=== PATIENT | female | born 1980 | race Caucasian/White ===

== ENCOUNTER 2023-05-18 08:56 | Emergency (ER) | payer OTHER, SELFPAY ==
[2023-05-18 08:57] VITALS: BP 135/84
[2023-05-18 11:18] VITALS: BP 136/73
[2023-05-18] MEDS: NSS 1000 IV (11:18)
[2023-05-18] MEDS: TORADOL 15 MG IV (11:19)
[2023-05-18 11:53] VITALS: BP 131/79
[2023-05-18 11:56] LABS: Urine Albumin Negative (Neg - Trace); Urine Bilirubin Negative (Negative); Urine Character Clear (Clear); Urine Color Yellow; Urine Glucose Negative (Negative); Urine Ketone Negative (Negative); Urine Leukocyte Negative (Negative); Urine Nitrite Negative (Negative); Urine Occult Blood 3+ (Negative); Urine Specific Gravity 1.015 (<1.030); Urine Urobilinogen Negative (Neg - 1+)
[2023-05-18 11:57] LABS: % Basophils 0.4 % (0-2); % Eosinophils 1.2 % (0-6); % Immature Granulocytes 0.4 % (0-0.5); % Lymphocytes 10.2 % (20.5-51.1); % Monocytes 2.6 % (1.7-9.3); % Neutrophils 85.2 % (42.2-75.2); Absolute Basophils 0.1 10^3/uL (0-0.2); Absolute Eosinophils 0.1 10^3/uL (0-0.7); Absolute Lymphocytes 1.1 10^3/uL (1.2-3.4); Absolute Monocytes 0.3 10^3/uL (0.1-0.6); Absolute Neutrophils 9.5 10^3/uL (1.4-6.5); Hemoglobin 13.9 g/dL (12.0-16.0); Mean Corp Hgb Conc. 36.6 g/dL (33.0-37.0); Mean Corpuscular Hgb 30.8 pg (27.0-31.0); Mean Corpuscular Volume 84.3 fL (81.0-99.0); Mean Platelet Volume 11.8 fL (7.4-10.4); Nucleated Red Blood Cells % 0 %; Platelet Count 143 10^3/uL (130-400); Red Blood Cell Count 4.51 10^6/uL (4.20-5.40); Red Cell Dist. Width 12.7 % (11.5-14.5); White Blood Cell Count 11.1 10^3/uL (4.8-10.8)
[2023-05-18 12:00] VITALS: BP 132/74
[2023-05-18 12:01] LABS: Urine Bacteria Few (Negative); Urine White Cell 0-2 /HPF (0-5)
[2023-05-18 12:08] LABS: HCG, Serum Qualitative Screen Negative
[2023-05-18 12:11] LABS: ALT (SGPT) 13 U/L (0-35); AST (SGOT) 22 U/L (14-36); Albumin 4.2 g/dl (3.5-5.0); Alkaline Phosphatase 87 U/L (38-126); Blood Urea Nitrogen 12 mg/dl (7-17); Calcium 9.6 mg/dl (8.4-10.2); Carbon Dioxide 24 mmol/L (22-30); Chloride 103 mmol/L (98-107); Glucose 115 mg/dl (70-99); Potassium 4.1 mmol/L (3.5-5.1); Sodium 138 mmol/L (135-145); Total Bilirubin 0.7 mg/dl (0.2-1.3); Total Protein 7.5 g/dl (6.3-8.2); eGFR > 60.00
--- NOTE | 2023-05-18 12:15 | ED.GENMED ---
History of Present Illness
General
Chief Complaint: Flank Pain
Source: patient
Exam Limitations: none
Time Seen by Provider: 05/18/23 11:01
Nursing documentation reviewed up to this point in time: agreed with
Travel History
Have you had any contact with someone who has COVID-19?: No
Do you have any symptoms of coronavirus? Fever > 100 degrees, chills, cough, shortness of breath, sore throat, loss of taste or smell, muscle aches, or headache?: No
History of Present Illness
History of Present Illness:
42-year-old female presents emergency department complaining of right flank pain, cloudy urine for the past 6 days.
Past History
Past History
ED Past Medical History: None
ED Past Surgical History: and Other (Laparoscopy with IVF, wisdom teeth extraction)
Social History
Tobacco: Non-smoker
Alcohol: None
Drug: None
Personal:
Living: with family
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
Family History
Family History: Other (Noncontributory)
Review of Systems
Review of Systems
Allergies reviewed?: Yes
All Other Systems: Not applicable
Constitutional: Reports no symptoms
EENT: Reports no symptoms
Respiratory: Reports no symptoms
Cardiac: Reports no symptoms
ABD/GI: Reports no symptoms
: Reports flank pain
Musculoskeletal: Reports no symptoms
Skin: Reports no symptoms
Neurological: Reports no symptoms
Endocrine: Reports no symptoms
Hematologic/Lymphatic: Reports no symptoms
Psychiatric: Reports no symptoms
Phy Exam
Physical Exam
Physical Exam:
Physical Exam
General: no apparent distress, not acutely ill
Neck: supple. no meningeal signs. normal posterior pharynx
Heart: s1/s2 regular rate and rhythm, no murmur. equal radial
pulses.
HEENT: Pupils equal round reactive to light, EOMI
Lungs: no acute respiratory distress. clear bilaterally
Abdomen: normal bowel sounds. not tender. no CVAT
Neuro: alert and oriented. no focal neurological deficits cranial nerves II through XII intact
Skin: no rash
Psychiatric: well kept. interactive and cooperative
Extremities: no edema. no calf tenderness. negative homans. good distal pulses
Course
Orders/Labs/Results
Orders:
Orders
05/18/23 09:02
Test Result ONCE
05/18/23 11:10
CT Abd/pel Without Iv Or Oral Urgent
Comment:
Reason For Exam: right flank pain
IV Insert/Care/Rem.- Treatment PRN
0.9% Sodium Chloride 1000 ml [Nss] 1,000 ml IV BOLUS
Ketorolac [Toradol] 15 mg IV NOW STA
05/18/23 11:14
CBC/With Diff [Complete Blood Count/With Diff] Urgent
Comprehensive Metabolic Panel Urgent
HCG, Serum Qualitative Screen Urgent
Lipase Urgent
Comment: ADD-ON
Urinalysis Reflex To Culture Urgent
Date Specimen was Collected: 05/18/23
Time Specimen was Collected: 09:03
Urine Microscopic Reflex Cult Urgent
05/18/23 14:19
Add On- LAB Urgent
Tests Added?: lipase
Abnormal Lab Results
05/18/23
11:14
WBC 11.1 H 10^3/uL
(4.8-10.8)
MPV 11.8 H fL
(7.4-10.4)
Absolute Neuts (auto) 9.5 H 10^3/uL
(1.4-6.5)
Absolute Lymphs (auto) 1.1 L 10^3/uL
(1.2-3.4)
Neutrophils % 85.2 H %
(42.2-75.2)
Lymphocytes % 10.2 L %
(20.5-51.1)
Glucose 115 H mg/dl
(70-99)
Ur Occult Blood Reflex 3+ A
(Negative)
Urine RBC 3-6 A /HPF
(0-2)
Urine Bacteria (Reflex) Few A
(Negative)
05/18/23 11:14
05/18/23 11:14
Vital Signs
Initial and Last Documented VS:
Initial Vital Signs
Temp Pulse Resp BP Pulse Ox
98.3 F 81 16 135/84 97
05/18/23 08:57 05/18/23 08:57 05/18/23 08:57 05/18/23 08:57 05/18/23 08:57
Last Documented Vital Signs
Temp Pulse Resp BP Pulse Ox
98.3 F 69 20 124/78 99
05/18/23 08:57 05/18/23 13:30 05/18/23 13:30 05/18/23 13:24 05/18/23 13:30
MDM/Problems Addressed
Differential Diagnosis Includes:
Kidney stone, pyelonephritis
MDM/Problems Addressed:
Right flank pain, no signs of kidney stone, unusual fat replacement of neck and body of pancreas and soft tissue density in head and tail of pancreas. Patient will have outpatient MRI ordered by primary care. Return precautions given.
Chronic conditions affecting care: Previous abdomnial surgery (C-sections)
Acute Exacerbation and/or Progression of Chronic Illness: Previous abdomnial surgery (C-sections)
*Radiology
Radiology exam reviewed: radiology read reviewed (CT abdomen pelvis no acute findings, abnormal fat replacement of head and body of pancreas, possible soft tissue mass in tail of pancreas)
*Pulse Oximetry
Patient hypoxic: no
*EKG
Interpreted by ED Provider?: NA
*Manager Exchange Interpretation
Rate: Manager Exchange- N/A
*Critical Care Note
Total Time (30-74mins, 75-104mins- exclusive of procedures): Not Applicable
Data Reviewed
Review of Other/Old Records Reveals: Labs (Prior kidney function and lipase on 09/09/2017 normal)
Further Testing Considered But Not Given:
MRI to be performed as outpatient
Patient Management
Social determinants of health affecting care: Living situation and Strong social support
Escalation/DeEscalation of care consider admission/obs:
Admit not indicated
ED Attending Note
-
Portions of this chart may have been created with voice recognition software.� Occasional wrong word or��sound alike� substitutions may have occurred due to the inherent limitations of voice recognition software.
Discharge Plan
Departure
Patient with high blood pressure during this ER visit?: Yes
Condition: Good
Discharge Problem:
Acute right flank pain, Pancreatic mass
Instructions: Flank Pain (DC)
Prescriptions:
No Action
multivitamin [Daily Multiple] 1 EACH tablet
1 ea PO DAILY
cetirizine 10 MG tablet
10 mg PO DAILY
Referrals:
Lynda Root MD [Family Provider] - Call in 1-3 days for appt
Activity Restrictions/Additional Instructions:
Your CT scan showed an abnormal fat area in your pancreas that needs to be followed up with an MRI ordered by your primary care physician. This should include contrast.
Interventions
Interventions:
*Risk Screen - Suicide Last Done: 05/18/23 08:57
*General Assessment Last Done: 05/18/23 08:57
*Neglect/Abuse Screening Last Done: 05/18/23 08:57
XO-Jdwpql-Tyiwnryaeb Assessment Last Done: 05/18/23 11:16
ED-Female Genitourinary Assessment Last Done: 05/18/23 11:16
[2023-05-18 13:24] VITALS: BP 124/78
[2023-05-18 14:00] VITALS: BP 140/78
[2023-05-18 15:00] LABS: Lipase 83 U/L (23-300)
== END 2023-05-18 15:23 | disposition home or self-care (01) ==
LOC: EMR 08:56
PROVIDERS: EMERGENCY PHYSICIAN Emergency Medicine; FAMILY PHYSICIAN Internal Medicine
DX: R10.9 Unspecified abdominal pain (principal); M54.9 Dorsalgia, unspecified; K86.9 Disease of pancreas, unspecified; R03.0 Elevated blood-pressure reading, without diagnosis of hypertension
CPT/HCPCS: 99284; 96374; 96361; 74176; 80053; 81003; 81015; 83690; 84703; 85025

== ENCOUNTER → 2023-05-21 08:22 | Outpatient (REF) | payer OTHER, SELFPAY | LOC: PAVMRI 08:22 | PROVIDERS: ATTENDING PHYSICIAN Internal Medicine | DX: K86.2 Cyst of pancreas (principal) | CPT/HCPCS: 74183; A9575 ==

== ENCOUNTER → 2024-07-09 07:30 | Outpatient (REF) | payer OTHER, SELFPAY | LOC: HWWDC 07:30 | PROVIDERS: ATTENDING PHYSICIAN Internal Medicine | DX: Z12.31 Encounter for screening mammogram for malignant neoplasm of breast (principal) | CPT/HCPCS: 77063; 77067 ==

== ENCOUNTER 2024-09-24 06:23 | Day surgery (SDC) | payer OTHER, SELFPAY | END 2024-09-24 10:41 | disposition home or self-care (01) | LOC: GI 06:23 | PROVIDERS: ATTENDING PHYSICIAN Internal Medicine Gastroenterology; FAMILY PHYSICIAN Internal Medicine | DX: Z12.11 Encounter for screening for malignant neoplasm of colon (principal); K64.8 Other hemorrhoids; Z83.719 Family history of colon polyps, unspecified | CPT/HCPCS: G0121 ==